=== PATIENT | female | born 1940 | race Caucasian/White ===

== ENCOUNTER 2022-04-17 10:39 | Inpatient (IN) | payer MEDICARE, MEDICAID ==
[~2022-04-17] VITALS: Ht 165.1 cm; Wt 62.3 kg
[2022-04-17 11:15] LABS: Basophils # (auto) 0.1 10 ^3/uL (0-0.2); Basophils % (auto) 0.7 % (0.0-2.0); Eosinophils # (auto) 0 10 ^3/uL (0-0.8); Eosinophils % (auto) 0.1 % (0.0-7.0); Hematocrit 43.9 % (36.0-46.0); Hemoglobin 15.5 g/dL (12.2-16.2); Lymphocytes % (auto) 16.9 % (10.0-50.0); Mean Corpuscular Hgb Conc. 35.2 g/dL (32.0-36.0); Monocytes # (auto) 0.7 10 ^3/uL (0-1.3); Monocytes % (auto) 6.3 % (0.0-12.0); Nucleated Red Blood Cells % 0.2 %; Red Blood Cells 4.99 10^6/uL (4.0-5.20); White Blood Cell 11.8 10^3/uL (4.4-10.8)
[2022-04-17 11:35] LABS: Albumin 4.4 g/dL (3.4-5.0); Calcium 9.9 mg/dL (8.5-10.1); Potassium 3.4 mmol/L (3.5-5.1)
[2022-04-17 11:37] LABS: BUN/Creatinine Ratio 19.2; Bilirubin, Total 1.2 mg/dL (0.2-1.0); Total Protein 6.8 g/dL (6.4-8.2)
[2022-04-17] MEDS ORDERED: PANTOPRAZOLE 40 MG/10 ML VIAL INJ IV ONE (11:45)
[2022-04-17 12:31] LABS: INR 1.13 (0.9-1.15)
[2022-04-17] MEDS ORDERED: POTASSIUM CHL 20MEQ/100ML 100 ML IV ONE (15:15)
[2022-04-17] MEDS ORDERED: HYDROcodone-ACET 5/325MG TAB PO PRN (15:15)
[2022-04-17] MEDS ORDERED: DOCUSATE SOD 100 MG CAP PO PRN (15:15)
[2022-04-17] MEDS ORDERED: NITROGLYCERIN 0.4 MG SL TAB SL PRN (15:15)
[2022-04-17] MEDS ORDERED: ACETAMINOPHEN 325 MG TAB PO PRN (15:15)
[2022-04-17] MEDS ORDERED: SODIUM CHLORIDE 0.9% 1,000 ML IV ONE (15:15)
[2022-04-17] MEDS ORDERED: MORPHINE SULFATE INJ 2 MG/ml SYRG IV PRN (15:15)
[2022-04-17] MEDS ORDERED: ONDANSETRON HCL 4 MG/2 ML VIAL IV PRN (15:15)
[2022-04-17] MEDS: SODIUM CHLORIDE 0.9% 1,000 ML IV SCH (23:52)
[2022-04-18] MEDS: LEVOTHYROXINE SODIUM 50 MCG TAB PO SCH (06:28)
[2022-04-18 06:42] LABS: Basophils # (auto) 0 10 ^3/uL (0-0.2); Basophils % (auto) 0.4 % (0.0-2.0); Eosinophils # (auto) 0 10 ^3/uL (0-0.8); Eosinophils % (auto) 0.1 % (0.0-7.0); Hematocrit 37.7 % (36.0-46.0); Lymphocytes # (auto) 1.4 10 ^3/uL (0.4-5.4); Lymphocytes % (auto) 14.6 % (10.0-50.0); Mean Corpuscular Hemoglobin 30.9 pg (28.0-32.0); Mean Corpuscular Hgb Conc. 34.5 g/dL (32.0-36.0); Mean Corpuscular Volume 89.5 fL (80.0-100.0); Monocytes # (auto) 0.8 10 ^3/uL (0-1.3); Monocytes % (auto) 8.3 % (0.0-12.0); Neutrophils # (auto) 7.2 10 ^3/uL (1.6-8.6); Neutrophils % (auto) 76.6 % (37.0-80.0); Red Blood Cells 4.21 10^6/uL (4.0-5.20); Red Cell Distribution Width 13.5 % (11.8-14.3); White Blood Cell 9.5 10^3/uL (4.4-10.8)
[2022-04-18 07:00] LABS: Albumin 3.2 g/dL (3.4-5.0); Calcium 8.4 mg/dL (8.5-10.1); Potassium 3.3 mmol/L (3.5-5.1)
[2022-04-18 07:09] LABS: BUN/Creatinine Ratio 38.6; Bilirubin, Total 0.9 mg/dL (0.2-1.0); Total Protein 5.7 g/dL (6.4-8.2)
[2022-04-18] MEDS: METOPROLOL SUCCINATE XL 50 MG TAB PO SCH (09:21)
[2022-04-18] MEDS ORDERED: PANTOPRAZOLE 40 MG/10 ML VIAL INJ IV SCH (10:00)
[2022-04-18] MEDS ORDERED: hydrALAZINE HCL 20 MG/ML VL IV PRN (11:15)
[2022-04-18] MEDS ORDERED: LISINOPRIL 10 MG TAB PO ONE (11:15)
[2022-04-18] MEDS: SODIUM CHLORIDE 0.9% 1,000 ML IV SCH (12:26)
[2022-04-18 12:29] VITALS: BP 129/72
[2022-04-18] MEDS ORDERED: fentaNYL CITRATE 100 MCG/2 ML VL ONE (16:24)
[2022-04-18] MEDS ORDERED: diphenhdrAMINE HCL 50 MG/1 ML VL ONE (16:24)
[2022-04-18] MEDS ORDERED: MIDAZOLAM HCL 2MG/2ML 2ml VIAL (1mg/ml) ONE (16:24)
[2022-04-18] MEDS ORDERED: LIDOCAINE VISCOUS 2% 15ML UD ONE (16:46)
[2022-04-18] MEDS ORDERED: MIDAZOLAM HCL 2MG/2ML 2ml VIAL (1mg/ml) IV ONE ×2 (16:49→16:53)
[2022-04-18] MEDS ORDERED: fentaNYL CITRATE 100 MCG/2 ML VL IV ONE ×2 (16:49→16:53)
[2022-04-18] MEDS ORDERED: LIDOCAINE VISCOUS 2% 15ML UD MT ONE (16:49)
[2022-04-18] MEDS ORDERED: diphenhdrAMINE 50mg/ml (500mg/10ml VIAL) IV ONE ×2 (16:49→16:52)
[2022-04-18] MEDS ORDERED: LEVO50TA7 PO (16:57)
[2022-04-18] MEDS ORDERED: OMEP-260 PO (16:57)
[2022-04-18] MEDS ORDERED: MET25T PO (16:57)
[2022-04-18] MEDS ORDERED: ALPR0.5T8 PO (16:57)
[2022-04-18] MEDS ORDERED: HYDR1TAB97 PO (16:57)
[2022-04-18 20:00] VITALS: BP 138/91
[2022-04-18] MEDS: PANTOPRAZOLE 40 MG/10 ML VIAL INJ IV SCH (21:45)
[2022-04-18] MEDS: SUCRALFATE 1 GM/10 ML ORAL SUSP PO SCH (21:45)
[2022-04-18] MEDS: ALPRAZolam 0.5 MG TAB PO PRN (21:52)
[2022-04-18 22:00] VITALS: BP 138/91
[2022-04-19] VITALS (7 sets, daily range): BP systolic 127–175; BP diastolic 61–78
[2022-04-19] MEDS: SODIUM CHLORIDE 0.9% 1,000 ML IV SCH (04:35)
[2022-04-19 05:31] LABS: Basophils # (auto) 0 10 ^3/uL (0-0.2); Basophils % (auto) 0.7 % (0.0-2.0); Eosinophils # (auto) 0 10 ^3/uL (0-0.8); Eosinophils % (auto) 0.5 % (0.0-7.0); Hematocrit 34.1 % (36.0-46.0); Lymphocytes # (auto) 1.3 10 ^3/uL (0.4-5.4); Lymphocytes % (auto) 21.4 % (10.0-50.0); Mean Corpuscular Hemoglobin 31.7 pg (28.0-32.0); Mean Corpuscular Hgb Conc. 35.2 g/dL (32.0-36.0); Mean Corpuscular Volume 90.1 fL (80.0-100.0); Monocytes # (auto) 0.6 10 ^3/uL (0-1.3); Monocytes % (auto) 9.6 % (0.0-12.0); Neutrophils # (auto) 4.1 10 ^3/uL (1.6-8.6); Neutrophils % (auto) 67.8 % (37.0-80.0); Nucleated Red Blood Cells % 0.1 %; Red Blood Cells 3.78 10^6/uL (4.0-5.20); Red Cell Distribution Width 13.5 % (11.8-14.3)
[2022-04-19 06:01] LABS: BUN/Creatinine Ratio 23.8; Calcium 8.4 mg/dL (8.5-10.1)
[2022-04-19] MEDS: SUCRALFATE 1 GM/10 ML ORAL SUSP PO SCH ×3 (06:18→16:37)
[2022-04-19] MEDS: LEVOTHYROXINE SODIUM 50 MCG TAB PO SCH (06:19)
[2022-04-19 06:36] LABS: Potassium 2.9 mmol/L (3.5-5.1)
[2022-04-19] MEDS ORDERED: POTASSIUM CHL 20 Meq TABLET PO ONE (07:00)
[2022-04-19] MEDS ORDERED: SOD CHL 0.45% WITH 20MEQ KCL 1,000 ML IV ONE (09:30)
[2022-04-19] MEDS: METOPROLOL SUCCINATE XL 50 MG TAB PO SCH (09:40)
[2022-04-19] MEDS: PANTOPRAZOLE 40 MG/10 ML VIAL INJ IV SCH (09:40)
[2022-04-19] MEDS ORDERED: PANT40TA2 PO (12:45)
[2022-04-19] MEDS ORDERED: SUCR1TAB22 OR (12:45)
[2022-04-19] MEDS ORDERED: POTASSIUM EFFERVESENT TAB 25 MEQ PO ONE (16:15)
[2022-04-19] MEDS ORDERED: cloNIDine HCL 0.1 MG TAB PO ONE (17:15)
[2022-04-19] MEDS ORDERED: cloNIDine HCL 0.1 MG TAB ONE (17:17)
[2022-04-19] MEDS: ALPRAZolam 0.5 MG TAB PO PRN (18:45)
== END 2022-04-19 21:35 | disposition home or self-care (01) | DRG 379 ==
LOC: ER 10:39 → TELE 15:19 → TELE-CENTR 04-18 16:01 → UNDODISIN 04-19 16:58
PROVIDERS: ADMIT Nurse Practitioner Family; ATTEND Nurse Practitioner Acute Care
PROC: 0DB68ZX Excision of Stomach, Via Natural or Artificial Opening Endoscopic, Diagnostic (ICD-10-PCS; 2022-04-18)
PROC: 0DB38ZX Excision of Lower Esophagus, Via Natural or Artificial Opening Endoscopic, Diagnostic (ICD-10-PCS; principal; 2022-04-18 16:45)
DX: K25.4 Chronic or unspecified gastric ulcer with hemorrhage (principal); D72.829 Elevated white blood cell count, unspecified; K22.11 Ulcer of esophagus with bleeding; E03.9 Hypothyroidism, unspecified; E86.0 Dehydration; E87.6 Hypokalemia; F41.9 Anxiety disorder, unspecified; I10 Essential (primary) hypertension; K44.9 Diaphragmatic hernia without obstruction or gangrene; R73.9 Hyperglycemia, unspecified; K21.9 Gastro-esophageal reflux disease without esophagitis; Z20.822 Contact with and (suspected) exposure to COVID-19
CPT/HCPCS: 36415; 43239; 71045; 80048; 80053; 83036; 83735; 84132; 84443; 84484; 85025; 85610; 85730; 87426; 93005; C9113; G0378; J1200; J2250; J2405; J3480